=== PATIENT | female | born 1990 | race Caucasian/White ===

== ENCOUNTER 2017-04-09 20:54 | Emergency (ER) | payer MEDICAID ==
[2017-04-09 20:54] VITALS: BMI 36.6
[2017-04-09 21:03] VITALS: BP 149/80; PULSE 102; RESP 20; TEMP 98; O2SAT 98
--- NOTE | 2017-04-09 21:19 | C.PDOC ---
History Of Present Illness 26 year old female who presents to the ER with a complaint of swelling to the right thumb that began today. Patient states she was washing dishes last night with a brillo pad and felt something go up her right thumb nail. Denies pain, discharge, or direct trauma/injury. (-) change in sensation Time Seen by Provider: 04/09/17 21:10 Chief Complaint (Nursing): Upper Extremity Problem/Injury History Per: Patient History/Exam Limitations: no limitations Onset/Duration Of Symptoms: Hrs Current Symptoms Are (Timing): Still Present Exacerbating Factor(s): Nothing Recent travel outside of the [place]: No Past Medical History Reviewed: Historical Data, Nursing Documentation, Vital Signs Vital Signs: Last Vital Signs Temp 98 F 04/09/17 20:59 Pulse 102 H 04/09/17 20:59 Resp 20 04/09/17 20:59 BP 149/80 04/09/17 20:59 Pulse Ox 98 04/09/17 22:35 - Medical History PMH: Anxiety, Bipolar Disorder, Depression, Hypercholesterolemia, Schizophrenia Surgical History: No Surg Hx - [facility] Procedures REPAIR OB LACERATION NEC (04/18/13) Family History: States: Unknown Family Hx - Social History Hx Tobacco Use: Yes Hx Alcohol Use: No Hx Substance Use: Yes - Immunization History Hx Tetanus Toxoid Vaccination: No Hx Influenza Vaccination: No Hx Pneumococcal Vaccination: No Review Of Systems Musculoskeletal: Negative for: Hand Pain Skin: Positive for: Other (Swelling) Neurological: Negative for: Weakness, Numbness Physical Exam - Physical Exam Appears: Non-toxic, No Acute Distress Skin: Normal Color, Warm, Dry Head: Atraumatic, Normacephalic Eye(s): bilateral: Normal Inspection, EOMI Oral Mucosa: Moist Neck: Normal ROM, Supple Chest: Symmetrical Respiratory: No Accessory Muscle Use Extremity: Normal ROM, No Tenderness, Capillary Refill (Good), No Deformity, Swelling (w/ mild erythema to distal right thumb) Pulses: Left Radial: Normal, Right Radial: Normal Neurological/Psych: Oriented x3, Normal Speech, Normal Cognition ED Course And Treatment O2 Sat by Pulse Oximetry: 98 (Room air) Pulse Ox Interpretation: Normal Progress Note: Keflex and tetanus vaccination administered. Patient is resting comfortably, and is in no acute distress. Patient was instructed to follow up with PMD in 1-2 days for further evaluation. Disposition - Disposition Disposition: HOME/ ROUTINE Disposition Time: 21:17 Condition: STABLE Additional Instructions: Elevate the ring. Apply antibiotic ointment on it. Wound check in 2 days. Prescriptions: Cephalexin [Keflex] 500 mg PO BID #14 capsule Instructions: Acute Wound Care (ED) Forms: [facility] (Luxembourger) - Clinical Impression Clinical Impression: Swollen thumb - Scribe Statement The provider has reviewed the documentation as recorded by the Scribe Nghia De Los Santos All medical record entries made by the Patrickibnancy were at my direction and personally dictated by me. I have reviewed the chart and agree that the record accurately reflects my personal performance of the history, physical exam, medical decision making, and the department course for this patient. I have also personally directed, reviewed, and agree with the discharge instructions and disposition.
== END 2017-04-09 21:45 | disposition home or self-care (01) ==
LOC: C.ER 20:54
DX: M79.89 Other specified soft tissue disorders (principal)

== ENCOUNTER 2017-08-13 16:15 | Emergency (ER) | payer MEDICAID ==
[2017-08-13 16:15] VITALS: BMI 36.6
[2017-08-13 16:24] VITALS: TEMP 99.3
[2017-08-13 16:42] LABS: HCG,QUALITATIVE URINE NEGATIVE (NEGATIVE)
[2017-08-13 16:45] LABS: SQUAMOUS EPITHIAL 6 /hpf (0-5); URINE BACTERIA OCC (<OCC); URINE BILIRUBIN NEGATIVE (NEGATIVE); URINE BLOOD NEGATIVE (NEGATIVE); URINE CLARITY Hazy (Clear); URINE COLOR Yellow (YELLOW); URINE GLUCOSE (UA) NORMAL (Normal); URINE LEUKOCYTE ESTERASE 1+ Leu/uL (Negative); URINE NITRATE NEGATIVE (NEGATIVE); URINE PROTEIN NEGATIVE (NEGATIVE); URINE UROBILINOGEN NORMAL mg/dL (0.2-1.0)
[2017-08-13] MEDS ORDERED: Sodium Chloride 0.9% 1,000 ML IV STA ×2 (16:50→19:00)
--- NOTE | 2017-08-13 16:54 | C.PDOC ---
History Of Present Illness 26 y/o F c no PMHx p/w abdominal pain since last night. Pain is upper abdomen, nonradiating, severe, intermittent, associated with NBNB vomiting. Denies diarrhea or constipation, fever, chills, dyspnea, chest pain. Time Seen by Provider: 08/13/17 16:32 Chief Complaint (Nursing): Abdominal Pain Past Medical History Vital Signs: Last Vital Signs Temp 99.3 F 08/13/17 16:21 Pulse 95 H 08/13/17 16:21 Resp 18 08/13/17 16:21 BP 120/86 08/13/17 16:21 Pulse Ox 97 08/13/17 17:20 - Medical History PMH: Anxiety, Bipolar Disorder, Depression, Hypercholesterolemia, Schizophrenia Denies: Diabetes, Hepatitis, HIV, HTN, Seizures, Sexually Transmitted Disease - [facility] Procedures REPAIR OB LACERATION NEC (04/18/13) Family History: States: Unknown Family Hx - Social History Hx Tobacco Use: Yes Hx Alcohol Use: No Hx Substance Use: No - Immunization History Hx Tetanus Toxoid Vaccination: Yes Hx Influenza Vaccination: Yes Hx Pneumococcal Vaccination: Yes Review Of Systems Except As Marked, All Systems Reviewed And Found Negative. Constitutional: Negative for: Fever Cardiovascular: Negative for: Chest Pain Physical Exam - Physical Exam Additional Physical Exam Comments: Constitutional: Crying, appears in distress. Head: Normocephalic. Atraumatic. Eyes: PERRL. ENT: Moist mucous membranes. Neck: Supple. Cardiovascular: Regular rate. Radial pulse 2+ bilaterally. Chest: No tenderness. Respiratory: Clear to auscultation bilaterally. GI: Soft. Nondistended. RUQ tenderness without guarding. Obese. Back: No CVA tenderness. Musculoskeletal: No tenderness or swelling of extremities. Skin: No rash. Neurologic: Alert, no focal deficit. ED Course And Treatment - Laboratory Results Result Diagrams: 08/13/17 17:10 08/13/17 17:09 O2 Sat by Pulse Oximetry: 97 Medical Decision Making Medical Decision Making: FINDINGS: LOWER THORAX: No infiltrate seen in the lung bases. ABDOMEN: LIVER: No acute abnormality of the liver identified. GALLBLADDER AND BILE DUCTS: No CT evidence of acute cholecystitis. No evidence of significant biliary ductal dilatation. PANCREAS: No CT evidence of acute pancreatitis. SPLEEN: No acute abnormality of the spleen identified. ADRENALS: No acute abnormality of the adrenal glands identified. KIDNEYS AND URETERS: No acute abnormality of the kidneys identified. No evidence of significant hydrouereteronephrosis. STOMACH AND BOWEL: No acute abnormality of the stomach, small bowel or colon identified. No evidence of bowel obstruction. APPENDIX: Appendix is seen, and is within normal limits in appearance. PELVIS: BLADDER: No acute abnormality of the bladder identified. REPRODUCTIVE: IUD noted within the uterus. No evidence of large adnexal masses. ABDOMEN and PELVIS: INTRAPERITONEAL SPACE: No evidence of free intraperitoneal air or fluid. BONES/JOINTS: No acute fractures or other acute bony abnormality noted. SOFT TISSUES: No acute abnormality of the visualized soft tissues is seen. VASCULATURE: No evidence of abdominal aortic aneurysm. No evidence of periaortic hemorrhage. LYMPH NODES: No evidence of diffuse lymphadenopathy. IMPRESSION: - No evidence of significant acute process. No definite cause for pain identified. - See above for remaining findings. Dictated By: Dorota Bolivar MD Dictated Date/Time: 08/13/172013 Signed By: Dorota Bolivar MD Date Signed: 2013 Transcribed By: [employer] Transcribe Date/Time : 08/13/172013 Patient feels better but still with nausea and spit up somewhat. I offered the patient further inpatient stay for nausea medication, hydration, and observation but she refused. Will discharge, instructed to return to ED for worsening pain, fever, vomiting, or pain. Disposition - Disposition Disposition: HOME/ ROUTINE Disposition Time: 20:25 Condition: STABLE Prescriptions: Ondansetron ODT [Zofran ODT] 4 mg PO Q8 #12 odt Instructions: Acute Nausea and Vomiting (ED) Forms: [employer] (Portuguese) - Clinical Impression Clinical Impression: Abdominal pain, Vomiting
[2017-08-13] MEDS ORDERED: Morphine 4 MG/ML VIAL ONE (17:05)
[2017-08-13 17:13] LABS: BASO # 0.1 K/uL (0.0-0.2); BASO % 0.3 % (0.0-2.0); EOS # 0.1 K/uL (0.0-0.7); EOS % 0.7 % (0.0-4.0); LYMPH # 0.9 K/uL (1.0-4.3); LYMPH % 4.7 % (20.0-40.0); MEAN CELL VOLUME 90.9 fL (81.0-99.0); MEAN CORPUSCULAR HEMOGLOBIN 31.1 pg (27.0-31.0); MEAN CORPUSCULAR HGB CONC 34.2 g/dL (33.0-37.0); MEAN PLATELET VOLUME 8.6 fL (7.2-11.7); MONO # 0.7 K/uL (0.0-0.8); MONO % 3.6 % (0.0-10.0); NEUT # 17.5 K/uL (1.8-7.0); NEUT % 90.7 % (50.0-75.0); PLATELET COUNT 335 K/uL (130-400); RBC 4.82 Mil/uL (3.80-5.20); RED CELL DISTRIBUTION WIDTH 13.8 % (11.5-14.5); WHITE BLOOD COUNT 19.3 K/uL (4.8-10.8)
[2017-08-13 17:32] LABS: ALBUMIN 4.3 g/dL (3.5-5.0); CALCIUM 8.6 mg/dl (8.6-10.4); GFR AFRICAN-AMERICAN > 60; GFR NON-AFRICAN AMERICAN > 60; LIPASE 131 U/L (23-300)
[2017-08-13 17:39] LABS: ALT/SGPT 20 U/L (9-52); AST/SGOT 31 U/L (14-36); BLOOD UREA NITROGEN 14 mg/dL (7-17)
[2017-08-13 18:48] LABS: BASOPHIL 1 % (0-2); EOSINOPHIL 1 % (0-4); LYMPHOCYTE 4 % (20-40); MONOCYTE 2 % (0-10); NEUTROPHIL 92 % (50-75); PLATELET ESTIMATE NORMAL (NORMAL); TOTAL CELLS COUNTED 100
--- NOTE | 2017-08-13 18:51 | US ---
HISTORY: Abdominal pain, vomiting COMPARISON: None. TECHNIQUE: Sonographic evaluation of the abdomen. . Note the examination is limited the due to large body habitus and bowel gas. FINDINGS: LIVER: Liver is mildly enlarged measuring nearly 19 cm in CC dimension. Liver demonstrates smooth contour though increased echotexture likely due to fatty infiltration however other infiltrative hepatocellular disease process not excluded. No obvious hepatic mass or collection seen on images presented. . No mass. No intrahepatic bile duct dilatation. . No evidence of abdominal ascites. GALLBLADDER: Gallbladder is physiologically distended. No evidence of intraluminal gallbladder calculi. The the. COMMON BILE DUCT: Measures 4.2 mm. No stones. No dilatation. PANCREAS: The visualized portions of the pancreas appear grossly unremarkable. RIGHT KIDNEY: Right kidney measures approximately 10.9 x 4.9 x 4.8 cmcm. Normal echogenicity. No calculus, mass, or hydronephrosis. LEFT KIDNEY: Left kidney measures approximate 14.9 x 6.0 x 5.8cm. Normal echogenicity. There is small approximately 7.3 mm echogenic focus midpole left kidney which could represent a nonobstructing calculus. Consider followup nonemergent CT no evidence scan of the abdomen and pelvis. . No evidence of hydronephrosis. SPLEEN: Spleen measures approximately 11 cm in greatest dimension. No splenic masses, collections or calcifications. AORTA: No aneurysmal dilatation. IVC: Unremarkable. OTHER FINDINGS: None. IMPRESSION: Limited study due to body habitus and bowel gas. Mild hepatomegaly. Echogenic hepatic parenchyma likely due to fatty infiltration however other infiltrative hepatocellular disease process not excluded. Questionable on non obstructing calculus midpole left kidney.
[2017-08-13] MEDS ORDERED: Iodixanol 320 MG/ML 100 ML BOTTLE IV ONE (19:24)
--- NOTE | 2017-08-13 20:14 | CT ---
EXAM: CT Abdomen and Pelvis With Intravenous Contrast EXAM DATE/TIME: 08/13/2017 7:00 PM CLINICAL HISTORY: 26 years old, female; Pain and signs and symptoms; Vomiting; Abdominal pain; Localized; Right upper quadrant (ruq); Additional info: Abd pain, vomiting TECHNIQUE: Axial computed tomography images of the abdomen and pelvis with intravenous contrast. All CT scans at this facility use one or more dose reduction techniques, viz.: automated exposure control; ma/kV adjustment per patient size (including targeted exams where dose is matched to indication; i.e. head); or iterative reconstruction technique. Coronal and sagittal reformatted images were created and reviewed. CONTRAST: 100 mL of visipaque 320 administered intravenously. COMPARISON: No relevant prior studies available. FINDINGS: LOWER THORAX: No infiltrate seen in the lung bases. ABDOMEN: LIVER: No acute abnormality of the liver identified. GALLBLADDER AND BILE DUCTS: No CT evidence of acute cholecystitis. No evidence of significant biliary ductal dilatation. PANCREAS: No CT evidence of acute pancreatitis. SPLEEN: No acute abnormality of the spleen identified. ADRENALS: No acute abnormality of the adrenal glands identified. KIDNEYS AND URETERS: No acute abnormality of the kidneys identified. No evidence of significant hydrouereteronephrosis. STOMACH AND BOWEL: No acute abnormality of the stomach, small bowel or colon identified. No evidence of bowel obstruction. APPENDIX: Appendix is seen, and is within normal limits in appearance. PELVIS: BLADDER: No acute abnormality of the bladder identified. REPRODUCTIVE: IUD noted within the uterus. No evidence of large adnexal masses. ABDOMEN and PELVIS: INTRAPERITONEAL SPACE: No evidence of free intraperitoneal air or fluid. BONES/JOINTS: No acute fractures or other acute bony abnormality noted. SOFT TISSUES: No acute abnormality of the visualized soft tissues is seen. VASCULATURE: No evidence of abdominal aortic aneurysm. No evidence of periaortic hemorrhage. LYMPH NODES: No evidence of diffuse lymphadenopathy. IMPRESSION: - No evidence of significant acute process. No definite cause for pain identified. - See above for remaining findings.
[2017-08-13 20:40] VITALS: BP 128/84; PULSE 72; RESP 16; O2SAT 98
== END 2017-08-13 20:39 | disposition home or self-care (01) ==
LOC: C.ER 16:15
DX: R10.11 Right upper quadrant pain (principal); R11.10 Vomiting, unspecified
CPT/HCPCS: 74177; 76700; 80053; 81001; 83690; 84703; 85025; 96374; 96375; 99284; J2270; J2405; Q9967

== ENCOUNTER 2019-01-13 20:05 | Emergency (ER) | payer MEDICAID ==
[2019-01-13 20:05] VITALS: BMI 36.6
[2019-01-13 20:58] LABS: HCG,QUALITATIVE URINE POSITIVE (NEGATIVE)
[2019-01-13 21:02] LABS: SQUAMOUS EPITHIAL 7 /hpf (0-5); URINE BILIRUBIN NEGATIVE (NEGATIVE); URINE BLOOD NEGATIVE (NEGATIVE); URINE CLARITY Hazy (Clear); URINE COLOR Yellow (YELLOW); URINE GLUCOSE (UA) NORMAL (Normal); URINE LEUKOCYTE ESTERASE 2+ Leu/uL (Negative); URINE PROTEIN NEGATIVE (NEGATIVE)
[2019-01-13 21:40] LABS: BASO # 0.1 K/uL (0.0-0.2); BASO % 0.6 % (0.0-2.0); EOS # 0.2 K/uL (0.0-0.7); EOS % 1.5 % (0.0-4.0); HEMOGLOBIN 13.1 g/dL (11.0-16.0); LYMPH # 3.6 K/uL (1.0-4.3); LYMPH % 26.5 % (20.0-40.0); MEAN CELL VOLUME 93.6 fL (81.0-99.0); MEAN CORPUSCULAR HEMOGLOBIN 31.8 pg (27.0-31.0); MEAN PLATELET VOLUME 8.3 fL (7.2-11.7); MONO % 7.1 % (0.0-10.0); NEUT # 8.8 K/uL (1.8-7.0); NEUT % 64.3 % (50.0-75.0); NRBC % 0.2 % (0.0-2.0); RBC 4.12 Mil/uL (3.80-5.20); RED CELL DISTRIBUTION WIDTH 13.8 % (11.5-14.5); WHITE BLOOD COUNT 13.6 K/uL (4.8-10.8)
[2019-01-13 21:48] LABS: INR 1.1; PARTIAL THROMBOPLASTIN TIME 28.9 SECONDS (21-34); PROTHROMBIN TIME 12.3 SECONDS (9.7-12.2)
[2019-01-13 21:56] LABS: ALB/GLOB RATIO 1.2 (1.0-2.1); ALBUMIN 3.9 g/dL (3.5-5.0); BILIRUBIN,DIRECT 0.4 mg/dL (0.0-0.4); BLOOD UREA NITROGEN 14 mg/dL (7-17); CALCIUM 9.4 mg/dl (8.6-10.4); GFR NON-AFRICAN AMERICAN > 60
[2019-01-13 21:59] LABS: ALT/SGPT 9 U/L (9-52); AST/SGOT 22 U/L (14-36)
--- NOTE | 2019-01-13 22:21 | C.PDOC ---
History Of Present Illness 28 y/o female presents to ED with abdominal pain for the past few days, worse in epigastric. Patient found out shes in the ER. Denies fever, vaginal bleeding, or other complaints. 5 weeks by date.s Time Seen by Provider: 01/13/19 21:19 Chief Complaint (Nursing): Abdominal Pain History Per: Patient History/Exam Limitations: no limitations Onset/Duration Of Symptoms: Days Current Symptoms Are (Timing): Still Present Past Medical History Reviewed: Historical Data, Nursing Documentation, Vital Signs Vital Signs: Last Vital Signs Temp 99 F 01/13/19 20:23 Pulse 75 01/13/19 20:23 Resp 20 01/13/19 20:23 BP 116/79 01/13/19 20:23 Pulse Ox 98 01/13/19 20:23 Primary Care Provider: Thomas Appiah - Medical History PMH: Anxiety, Bipolar Disorder, Depression, Hypercholesterolemia, Schizophrenia Denies: Diabetes, Hepatitis, HIV, HTN, Seizures, Sexually Transmitted Disease - [facility] Procedures REPAIR OB LACERATION NEC (04/18/13) Family History: States: No Known Family Hx - Social History Hx Tobacco Use: Yes Hx Alcohol Use: No Hx Substance Use: No - Immunization History Hx Tetanus Toxoid Vaccination: Yes Hx Influenza Vaccination: Yes Hx Pneumococcal Vaccination: Yes Review Of Systems Except As Marked, All Systems Reviewed And Found Negative. Constitutional: Negative for: Fever Gastrointestinal: Positive for: Abdominal Pain. Negative for: Nausea, Vomiting Genitourinary: Negative for: Vaginal Discharge, Vaginal Bleeding Physical Exam - Physical Exam Appears: Non-toxic, No Acute Distress Skin: Warm, Dry Head: Normacephalic Eye(s): bilateral: Normal Inspection Oral Mucosa: Moist Neck: Supple Cardiovascular: Rhythm Regular, No Murmur Respiratory: Normal Breath Sounds, No Rales, No Rhonchi, No Wheezing Gastrointestinal/Abdominal: Soft, Tenderness (epigastric tenderness), No Guarding, No Rebound Back: No CVA Tenderness Extremity: Bilateral: Atraumatic, Normal Color And Temperature Neurological/Psych: Oriented x3, Normal Speech ED Course And Treatment - Laboratory Results Result Diagrams: 01/13/19 21:35 01/13/19 21:35 Lab Results: PT 12.3 SECONDS (9.7-12.2) H 01/13/19 21:35 INR 1.1 01/13/19 21:35 APTT 28.9 SECONDS (21-34) 01/13/19 21:35 Total Bilirubin 0.4 mg/dL (0.2-1.3) 01/13/19 21:35 Direct Bilirubin 0.4 mg/dL (0.0-0.4) 01/13/19 21:35 AST 22 U/L (14-36) 01/13/19 21:35 ALT 9 U/L (9-52) D 01/13/19 21:35 Alkaline Phosphatase 56 U/L (38-126) 01/13/19 21:35 Total Protein 7.3 g/dL (6.3-8.3) 01/13/19 21:35 Albumin 3.9 g/dL (3.5-5.0) 01/13/19 21:35 Globulin 3.3 gm/dL (2.2-3.9) 01/13/19 21:35 Albumin/Globulin Ratio 1.2 (1.0-2.1) 01/13/19 21:35 Urine Color Yellow (YELLOW) 01/13/19 20:48 Urine Clarity Hazy (Clear) 01/13/19 20:48 Urine pH 5.0 (5.0-8.0) 01/13/19 20:48 Ur Specific [place] 1.028 (1.003-1.030) 01/13/19 20:48 Urine Protein Negative mg/dL (NEGATIVE) 01/13/19 20:48 Urine Glucose (UA) Normal mg/dL (Normal) 01/13/19 20:48 Urine Ketones Negative mg/dL (NEGATIVE) 01/13/19 20:48 Urine Blood Negative (NEGATIVE) 01/13/19 20:48 Urine Nitrate Negative (NEGATIVE) 01/13/19 20:48 Urine Bilirubin Negative (NEGATIVE) 01/13/19 20:48 Urine Urobilinogen 2.0 mg/dL (0.2-1.0) H 01/13/19 20:48 Ur Leukocyte Esterase 2+ [place]/uL (Negative) H 01/13/19 20:48 Urine WBC (Auto) 11 /hpf (0-5) H 01/13/19 20:48 Urine RBC (Auto) 5 /hpf (0-3) H 01/13/19 20:48 Ur Squamous Epith Cells 7 /hpf (0-5) H 01/13/19 20:48 Urine HCG, Qual Positive (NEGATIVE) 01/13/19 20:48 Urine HCG, Qual Positive (NEGATIVE) 01/13/19 20:48 O2 Sat by Pulse Oximetry: 98 (RA) Pulse Ox Interpretation: Normal Medical Decision Making Medical Decision Making: ro gastrits pancreatitis gallblaldder pathology miscarriage, Plan: --Labs --Urine preg --Transvaginal US --Gallbladder & Hepatic US labs mild leukocytosis, pt with similar leukocytosis in past. gallbladder us neg. tv shows gest sack, yolk sac, no cortes ?eearly vs demise. discussed with dr plummer recommends outpt us 1 week. in er pain resolved asking for dc. pt instructed to fu outpt. Disposition - Disposition Referrals: [facility] [Outside] [facility] [[facility]] Disposition: HOME/ ROUTINE Disposition Time: 22:57 Condition: STABLE Prescriptions: Cefpodoxime [Vantin] 100 mg PO BID #14 tab Instructions: Urinary Tract Infections in Adults, Threatened Miscarriage, Acute Abdomen (Belly Pain) Forms: [employer] (Uzbek) - Clinical Impression Clinical Impression: Abdominal pain, Threatened miscarriage, Leukocytosis - Scribe Statement The provider has reviewed the documentation as recorded by the Sherice Woodward Provider Attestation: All medical record entries jorge by the Patrickibe were at my direction and personally dictated by me. I have reviewed the chart and agree that the record accurately reflects my personal performance of the history, physical exam, medical decision making, and the department course for this patient. I have also personally directed, reviewed, and agree with the discharge instructions and disposition.
[2019-01-13 23:07] LABS: LIPASE 57 U/L (23-300)
[2019-01-14 00:23] VITALS: O2SAT 98
[2019-01-14 00:27] VITALS: BP 119/66; PULSE 81; RESP 17; TEMP 98
--- NOTE | 2019-01-14 16:52 | US ---
Pelvic ultrasound HISTORY: . Abdominal pain. Comparison: None available. Technique: Real-time sonography was performed through the pelvis utilizing transabdominal and transvaginal techniques. Findings: Urine test positive. LMP of 12/06/2018. Estimated gestational age by LMP of 5 weeks and 3 days. Uterus: 10.6 x 5.7 x 7.0 centimeters. Heterogeneous echotexture. Anteverted. Cervix measures 3.4 centimeters. Intrauterine gestational sac measuring 1.0 x 0.7 x 1.0 centimeters. This is too small to adequately date. Intrauterine yolk sac measuring 1.9 millimeters. No discrete pole identified. Free fluid within the pelvic cul-de-sac. Nabothian cysts noted at the level of the cervix. Right ovary: 4.3 x 3.5 x 3.0 centimeters. Normal flow. Heterogeneous hypoechoic cyst measuring 2.0 x 2.2 x 1.8 centimeters. Left ovary: 3.2 x 2.1 x 2.6 centimeters. Normal flow. Impression: 1. Small hypoechoic foci noted within the uterus suggestive for an intrauterine gestational sac measuring 1.0 x 0.7 x 1.0 centimeters. This is too small to adequately date. This may represent an early intrauterine . Yolk sac measures 1.9 millimeters. Continued interval follow-up is recommended. 2. Free fluid within the pelvic cul-de-sac. 3. 2.2 centimeter right ovarian cyst. 4. Nabothian cysts noted at the level of the cervix. In the setting of a positive test and lack of discrete intrauterine , considerations may include early intrauterine versus missed versus ectopic . Clinical correlation. Limited 1st trimester ultrasound for viability purposes only. Continued interval followup with serial ultrasound, serial HCG levels, and gynecological consultation would be helpful if clinically indicated. A preliminary report was generated at 11:27 p.m. on 01/13/[address] Fransico John from [email or web address].
--- NOTE | 2019-01-14 17:05 | US ---
Right upper quadrant abdominal ultrasound HISTORY: Abdominal pain. Comparison: CT scan dated 08/13/2017 Technique: Real-time sonography was performed through the right upper quadrant of the abdomen. Findings: Liver: 19.7 centimeters in length. Increased echogenicity of the hepatic parenchymal cortex suggestive for fatty infiltration versus hepatic parenchymal disease. Clinical correlation. Gallbladder: No calculi or sludge. Normal wall thickness of 2 millimeters. No gross wall edema. Negative sonographic Wade's sign. Common bile duct measures 3 millimeters, within normal limits. Limited visualization of the pancreas. Visualized aorta and IVC are preserved. Right kidney: 11.6 x 5.2 x 5.1 centimeters. No calculi or hydronephrosis. Impression: Hepatomegaly with associated increased echogenicity of the hepatic parenchymal cortex suggestive for fatty infiltration versus hepatic parenchymal disease. Clinical correlation. Limited visualization of the pancreas. A preliminary report was generated at 11:28 p.m. on 01/13/[address] Fransico John from [employer].
== END 2019-01-14 00:27 | disposition home or self-care (01) ==
LOC: C.ER 20:05
DX: O20.0 Threatened abortion (principal); O26.891 Other specified pregnancy related conditions, first trimester; R10.13 Epigastric pain; D72.829 Elevated white blood cell count, unspecified; Z3A.01 Less than 8 weeks gestation of pregnancy